=== PATIENT | male | born 1970 | race Caucasian/White ===

== ENCOUNTER 2018-11-02 18:21 | Emergency (ER) | payer BC, OTHER ==
[~2018-11-02] VITALS: Ht 185.4 cm; Wt 90.0 kg
[2018-11-02] MEDS ORDERED: KETOROLAC 30 MG/1 ML IVPush ONE (18:30)
[2018-11-02] MEDS ORDERED: ONDANSETRON 2MG/ML, 2ML IVPush ONE (18:30)
[2018-11-02] MEDS ORDERED: SODIUM CHLORIDE FLUSH 10ML SYR IVF ONE (18:30)
--- NOTE | 2018-11-02 18:35 | NUR ---
Assumed care of patient. C/O derrick aleman ABD pain and nausea. Hypertensive in ED, but patient admits to not taking his HTN meds this AM. Ambulated with a steady gait to the restroom. Placed on NIBP and pulse ox. Will conitnue to monitor.
[2018-11-02 18:55] LABS: MICROSCOPIC NOT IND
[2018-11-02 18:56] LABS: BASOPHILS # (AUTO) 0.01 x10^3/uL (0-0.1); BASOPHILS % (AUTO) 0 % (0-1); EOSINOPHILS # (AUTO) 0.13 x10^3/uL (0-0.4); EOSINOPHILS % (AUTO) 1 % (1-7); LYMPHOCYTES # (AUTO) 1.49 x10^3/uL (1-3.4); LYMPHOCYTES % (AUTO) 10 % (22-44); MD NO; MEAN CORPUSCULAR HEMOGLOBIN 31.3 pg (27.5-34.5); MEAN CORPUSCULAR HGB CONC 34.6 g/dL (33.2-36.2); MEAN CORPUSCULAR VOLUME 90.3 fL (81-97); MEAN PLATELET VOLUME 7.6 fL (7.4-10.4); MONOCYTES # (AUTO) 0.41 x10^3/uL (0.2-0.8); MONOCYTES % (AUTO) 3 % (2-9); NEUTROPHILS # (AUTO) 12.37 x10^3/uL (1.8-6.8); NEUTROPHILS % (AUTO) 86 % (42-75); PLATELET COUNT 291 x10^3/uL (130-400); RED BLOOD COUNT 5.05 x10^6/uL (4.38-5.82); RED CELL DISTRIBUTION WIDTH 12.9 % (9.4-14.8)
[2018-11-02 18:57] LABS: CULTURE INDICATED? NO
--- NOTE | 2018-11-02 18:58 | NUR ---
Report to JEREMIE Maravilla.
--- NOTE | 2018-11-02 19:03 | NUR ---
PT BEDSIDE REPORT FROM STEFF CHAO. THIS RN TO ASSUME CARE OF PT. AWAITING CT AT THIS TIME.
[2018-11-02 19:08] LABS: ALANINE AMINOTRANSFERASE 30 U/L (12-78); ALBUMIN 4.4 g/dL (3.4-5.0); ANION GAP 7 mmol/L (5-15); CALCIUM 8.6 mg/dL (8.5-10.1); CHLORIDE 106 mmol/L (98-107)
[2018-11-02 19:11] LABS: ALKALINE PHOSPHATASE 117 U/L (45-117); BILIRUBIN,TOTAL 0.5 mg/dL (0.2-1.0); CREATININE 1.21 mg/dL (0.7-1.3); TOTAL PROTEIN 7.7 g/dL (6.4-8.2)
[2018-11-02] MEDS ORDERED: KETOROLAC 30 MG/1 ML ONE (19:12)
[2018-11-02] MEDS ORDERED: ONDANSETRON 2MG/ML, 2ML ONE (19:12)
[2018-11-02 19:17] VITALS: BP 153/81
--- NOTE | 2018-11-02 19:17 | NUR ---
PT RETURNED FROM CT AT THIS TIME. AWAITING CT RESULTS. MEDICATED PER SEP. NO OTHER IMMEDIATE NEEDS CALL LIGHT WITHIN REACH.
[2018-11-02] MEDS ORDERED: MORPHINE SULFATE 4 MG/ML, 1ML ONE (19:33)
--- NOTE | 2018-11-02 19:44 | NUR ---
RFUSING MORPHINE AT THIS TIME. STATES PAIN RELIEVED FROM TORADOL ADMIN.
[2018-11-02] MEDS ORDERED: MORPHINE SULFATE 4 MG/ML, 1ML IVPush PRN (20:00)
== END 2018-11-02 21:09 | disposition home or self-care (01) ==
LOC: ED 18:51
DX: N13.2 Hydronephrosis with renal and ureteral calculous obstruction (principal)
CPT/HCPCS: 36415; 74176; 80053; 81003; 83690; 85025; 96374; 96375; 99284; J1885; J2405